=== PATIENT | female | born 1985 | race Hispanic/Latino ===

== ENCOUNTER 2018-06-25 17:44 | Emergency (ER) | payer OTHER ==
[2018-06-25 18:30] VITALS: BMI 26.2
--- NOTE | 2018-06-25 18:42 | OBHP ---
Datetime: 06/25/2018 18:34 IP Adm Impression: , intrauterine ; No Active Labor IP Admit Plan: Observation/Evaluation; Discharge home Admit Comment, IP Provider: Patient is a 2 para 1 estimated due date 08/12/2018 estimated ge stational age 33 weeks patient presents to labor and delivery complaining of [place] Regan contractio ns that have increased in intensity over the last 24-48 hours. Patient denies any vaginal bleeding an y leakage of fluid she reports good movement. care complicated by gestational diabetes diet controlled. Patient states she spelled with her PMD and was referred to labor and delivery for evaluation Past medical history none Past surgical history ablation for Kmusv-Dxsacnxmc-Pujth syndrome Medications vitamins Drug allergies allergic to amoxicillin and Ceclor cefprozil benzoyl peroxide shellfish Social history denies alcohol tobacco use Review of systems patient denies headache chest pain shortness of breath palpitations nausea vomit ing diarrhea heat or cold intolerance easy bruisability musculoskeletal or neurological complaints Vital signs stable afebrile Physical exam see notes Intrauterine at 33 weeks [place] Reg[place] contractions External monitor Urine analysis Plan of care discussed with Dr. Joy Observation Pelvic Type - PN: Adequate Extremities - PN: Normal Abdomen - PN: Normal Back - PN: Normal Breast - PN: Not Done Lungs - PN: Normal Heart - PN: Normal Thyroid - PN: Normal Neurologic - PN: Normal HEENT - PN: Normal General - PN: Normal FHR - Baseline A Provider: 145 Gestation - Est Wks by US: 33.0 Pool Provider: Negative EGA AdmitDate IP: 33.1 Vital Signs Provider: Reviewed IP Chief Complaint: Uterine contractions NICHD Variability Prov Fetus A: Moderate 6-25bpm NICHD Accel Fetus A IP Provider: 10X10 FHR Category Provider Fetus A: Category I NICHD Decel Fetus A IP Provider: None Dilatation, Provider: 0 Effacement, Provider: 0 Station, Provider: -2 Genitourinary Exam: Normal DTRs - PN: Not Done
[2018-06-25 19:31] LABS: SQUAMOUS EPITHIAL 1 /hpf (0-5); URINE BILIRUBIN NEGATIVE (NEGATIVE); URINE BLOOD NEGATIVE (NEGATIVE); URINE CLARITY SLIGHTY-CLOUDY (Clear); URINE COLOR STRAW (YELLOW); URINE GLUCOSE (UA) NEG (NEGATIVE); URINE LEUKOCYTE ESTERASE TRACE Leu/uL (Negative); URINE PROTEIN NEGATIVE (NEGATIVE); URINE UROBILINOGEN 0.2-1.0 mg/dL (0.2-1.0)
[2018-06-26 04:07] VITALS: BP 95/59; PULSE 89; RESP 18; TEMP 98.2; O2SAT 99
== END 2018-06-25 20:15 | disposition home or self-care (01) ==
LOC: H.EROB2 17:44
DX: O26.93 Pregnancy related conditions, unspecified, third trimester (principal); R10.2 Pelvic and perineal pain; O24.410 Gestational diabetes mellitus in pregnancy, diet controlled; Z3A.33 33 weeks gestation of pregnancy

== ENCOUNTER 2018-08-07 07:08 | Inpatient (IN) | payer OTHER ==
[2018-08-07 07:36] VITALS: BMI 26.6
[2018-08-07] MEDS ORDERED: Lactated Ringer's 1,000 ML IV ONE (08:29)
[2018-08-07] MEDS ORDERED: Oxytocin 30 UNIT 30 UNITS/500 ML BAG IV ONE (08:32)
[2018-08-07] MEDS ORDERED: OXYTOCIN/0.9 % NS 20 UNIT/1,000 ML BAG IV ONE (08:32)
--- NOTE | 2018-08-07 08:53 | OBADHP ---
Datetime: 08/07/2018 08:31 IP Chief Complaint Other: gestational DM; Macrosomia by sono; pylectasis by pre sono. IP Adm Impression Other: gest DM; Macrosomia by sono; Renal pylectasis Admit Comment, IP Provider: GBS neg. Admit to unit and augumentation of labor if needed. Discussed once again with pt about her condition and baby's condition, and sono findings of Macrosomia Discuss ed increased risks of shoulder dystocia and potential risks of injury to baby back, internal organs, brachial plexus, spine etc and injury to her canal. Pt was again reminded of gest DM that furt her complicates these risks and the fact that baby already has renal pylectasis and this may increase the risk of renal injury. Pt offered an elective C/S for the above reasons, but again she declines and refers had researched all of this in internet and wants to have vaginal delivery Risks, benefits and potential complications of vaginal delivery vs C/S was again discussed. Pt still insist she und erstands and will take her chances. This was witnessed by RN Ms Wang. Extremities - PN: Normal Abdomen - PN: Abnormal Back - PN: Normal Breast - PN: Not Done Lungs - PN: Normal Thyroid - PN: Normal Neurologic - PN: Not Done HEENT - PN: Normal General - PN: Normal Presentation-Admit: C FHR - Baseline A Provider: 140-15- Membranes, Provider: Intact Contraction Comments Provider: irreg Comments, ACOG Physical Exam: Abd soft gravid fundus at term, Ext no calf tenderness Gestation - Est Wks by US: 39.2 Pool Provider: Negative Vital Signs Provider: Reviewed IP Chief Complaint: Uterine contractions; Other NICHD Variability Prov Fetus A: Moderate 6-25bpm NICHD Decel Fetus A IP Provider: None Dilatation, Provider: 2cm Effacement, Provider: 20-30 Station, Provider: -2 Genitourinary Exam: Normal EGA AdmitDate IP: 39.2 IP Adm Impression: Term, intrauterine ; Active labor IP Admit Plan: Admit to unit; Initiate labor augmentation protocol Datetime: 06/25/2018 18:34 Pelvic Type - PN: Adequate Heart - PN: Normal NICHD Accel Fetus A IP Provider: 10X10 FHR Category Provider Fetus A: Category I DTRs - PN: Not Done
[2018-08-07 09:32] LABS: BASO % 0.3 % (0.0-2.0); EOS # 0.1 K/uL (0.0-0.7); EOS % 1.1 % (0.0-4.0); HEMOGLOBIN 11.9 g/dL (12.0-16.0); LYMPH # 1.5 K/uL (1.0-4.3); LYMPH % 14.9 % (20.0-40.0); MEAN CELL VOLUME 93.9 fl (81.0-99.0); MEAN CORPUSCULAR HEMOGLOBIN 31.9 pg (27.0-31.0); MEAN PLATELET VOLUME 10.1 fl (7.2-11.7); MONO # 0.6 K/uL (0.0-0.8); MONO % 6.2 % (0.0-10.0); NEUT # 7.5 K/uL (1.8-7.0); NEUT % 77.5 % (50.0-75.0); RBC 3.74 Mil/uL (3.80-5.20); RED CELL DISTRIBUTION WIDTH 13.7 % (11.5-14.5); WHITE BLOOD COUNT 9.7 K/uL (4.8-10.8)
[2018-08-07] MEDS: Lactated Ringer's 1,000 ML IV SCH ×4 (11:00→22:00)
[2018-08-07] MEDS ORDERED: Fentanyl/Bupivacaine HCl 250 ML EPI ONE (21:57)
--- NOTE | 2018-08-08 01:39 | OBPN ---
Datetime: 08/08/2018 01:34 IP Progress Impression: Normal progression of labor IP Progress Plan: Continue present management Pool Provider: Negative Membranes, Provider: Intact Contraction Comments Provider: 2 mins appart FHR - Baseline A Provider: 140's Gestation - Est Wks by US: [id number] Presentation-Admit: C IP Progress Note Comment: sugars had been wnl, had epidural and cuate well on her own with slo w progress discussed with pt wants to continue present management Vital Signs Provider: Reviewed NICHD Variability Prov Fetus A: Moderate 6-25bpm Dilatation, Provider: 5 Effacement, Provider: 75 Station, Provider: -3 NICHD Decel Fetus A IP Provider: None Datetime: 06/25/2018 18:34 NICHD Accel Fetus A IP Provider: 10X10 FHR Category Provider Fetus A: Category I
[2018-08-08] MEDS: Lactated Ringer's 1,000 ML IV SCH ×2 (06:03→16:33)
[2018-08-08] MEDS ORDERED: Oxytocin 30 UNIT 30 UNITS/500 ML BAG IV ONE ×2 (08:52→12:34)
--- NOTE | 2018-08-08 11:08 | OBPN ---
Datetime: 08/08/2018 10:59 IP Progress Impression Other: gest DM; macrosomia by sono and pylectasis by sono IP Progress Impression: Arrest of dilatation/descent IP Informed Consent Obtain: Section Delivery IP Progress Plan: Deliver- Section Membranes, Provider: Intact Contraction Comments Provider: 2min FHR - Baseline A Provider: 140 Gestation - Est Wks by US: 39.3 Presentation-Admit: C IP Progress Note Comment: Discussed again with pt about lack of progress despite good UC, and epidur al and baby not descending and discussed about all risks pt agreed to go ahead for abdominal deliver y Risks vs benefits were discussed and informed consent obtained will call anesthesia and peds Dilatation, Provider: 5cm Effacement, Provider: 75 Station, Provider: -3 NICHD Decel Fetus A IP Provider: None
[2018-08-08] MEDS ORDERED: Bupivacaine HCl 0.25% PF (10 ml) Inj ONE (11:34)
[2018-08-08] MEDS ORDERED: Bupivacaine HCl 0.5% PF (30 ml) Inj ONE (11:35)
[2018-08-08] MEDS: Clindamycin 600mg/50ml D5W 600 MG/50 ML VIAL IVPB SCH ×2 (11:50→17:16)
[2018-08-08] MEDS ORDERED: Morphine 1 mg/ml preservative-free Inj(Duramorph) ONE (12:31)
[2018-08-08] MEDS ORDERED: Propofol 10 mg/ml Inj (20 ML) ONE (12:45)
[2018-08-08] MEDS ORDERED: OXYTOCIN/0.9 % NS 20 UNIT/1,000 ML BAG IV ONE (14:02)
--- NOTE | 2018-08-08 14:14 | OBDS ---
DELIVERY PERSONNEL Delivery Doctor: Camryn Joy MD Scrub Nurse: Michelle Barrios System Operation Superintendent: Dao Ulloa RN Anesthesiologist: Christopher Fisher MD Resident: Tawana MATERNAL INFORMATION Delivery Anesthesia: Epidural Medications in Delivery: Pitocin Estimated Blood Loss (ml): 850 Placenta Cultured: No Maternal Complications: Other Other Maternal Complications: Gest DM; macrosomia by sono; pyliectasis Provider Comments: see dictated surgeons note LABOR SUMMARY EDC: 08/12/2018 00:00 LABOR INFORMATION Reason for Induction: Not Applicable Cervical Ripening Agents: cervidil removed Steroids Given: None Reason Steroids Not Administered: Not Applicable STAGES OF LABOR Stage 3 hrs: 0 Stage 3 min: 1 VAGINAL DELIVERY Episiotomy: None Laceration Extension: N/A Laceration Type: None Laceration Repair: Not Applicable Laceration Repair Note: n/a Sponge Count Correct: Yes Sharps Count Correct: Yes Count Comment: count correct x3 CSECTION DELIVERY Primary Indication: Primary C-S failure to progress Other Primary Indication: macrosomia by sono Secondary Indication: Failure of Descent Other Secondary Indication: pyliectasis by sono CSection Urgency: Non Elective CSection Incidence: Primary Labor: Labor Elective: Nonelective CSection Incision: Lower Uterine Transverse Uterine Closure: Double-layer closure BABY A INFORMATION Infant Delivery Date/Time: 08/08/2018 12:33 Method of Delivery: Born in Route : No : N/A Forceps: N/A Vacuum Extraction: Successful Shoulder Dystocia : No SHOULDER DYSTOCIA BABY A Infant Delivery Date/Time: 08/08/2018 12:33 PRESENTATION/POSITION BABY A Presentation: Cephalic Cephalic Presentation: Vertex Breech Presentation: N/A PLACENTA INFORMATION BABY A Placenta Delivery Time : 08/08/2018 12:34 Placenta Method of Delivery: Manual Removal Placenta Status: Delivered SCORES BABY A Heart Rate 1 min: >100 bpm Resp Effort 1 min: Good Cry Reflex Irritability 1 min: Cough or Sneeze or Pulls Away Muscle Tone 1 min: Active Motion Color 1 min: Body High [place], Extremities Blue Resuscitation Effort 1 min: Tactile Stimulation SCORE 1 MIN: 9 Heart Rate 5 min: >100 bpm Resp Effort 5 min: Good Cry Reflex Irritability 5 min: Cough or Sneeze or Pulls Away Muscle Tone 5 min: Active Motion Color 5 min: Body High [place], Extremities Blue Resuscitation Effort 5 min: N/A SCORE 5 MIN: 9 INFORMATION BABY A Gestational Age at Delivery: 39.0 Gestational Status: Term Outcome : Liveborn Condition : Stable Sex: Female IDENTIFICATION/MEDS BABY A ID Band Number: [id number] ID Band Location: Left Leg; Left Arm Vitamin K Given : Aquamephyton 1 mg IM Erythromycin Given: Given Both Eyes WEIGHT/LENGTH BABY A Infant Birthweight (gms): 4680 Weight (lb): 10 Infant Weight (oz): 5 CORD INFORMATION BABY A No. Cord Vessels: 3 Nuchal Cord : N/A Nuchal Cord Other: n/a True Knot: n/a Cord Blood Taken: Yes Banking/Donate Info: n/a Infant Suction: None; Mouth ASSESSMENT BABY A Infant Complications: None Physical Findings at Delivery: Within Normal Limits Respirations: Appears Normal Risk Management Internship/ALS Called : No Care By: Dr Su/Jensen Transferred To: Remains with Mother
[2018-08-08] MEDS ORDERED: Morphine 4 MG/ML VIAL IV PRN (17:34)
[2018-08-08] MEDS ORDERED: Naloxone 0.4 mg/ml Inj (Adult) IVP PRN (17:34)
[2018-08-08] MEDS ORDERED: DiphenhydrAMINE 50 mg/ml Inj IVP PRN (17:34)
[2018-08-09] MEDS: Clindamycin 600mg/50ml D5W 600 MG/50 ML VIAL IVPB SCH ×3 (00:42→08:29)
[2018-08-09] MEDS: Oxycodone/Acetaminophen 5/325 mg Tab PO PRN ×4 (00:48→18:16)
[2018-08-09] MEDS: Lactated Ringer's 1,000 ML IV SCH (00:49)
[2018-08-09 06:18] LABS: HEMOGLOBIN 11.5 g/dL (12.0-16.0); MEAN CELL VOLUME 93.8 fl (81.0-99.0); MEAN CORPUSCULAR HEMOGLOBIN 31.4 pg (27.0-31.0); MEAN CORPUSCULAR HGB CONC 33.5 g/dL (33.0-37.0); RBC 3.68 Mil/uL (3.80-5.20); RED CELL DISTRIBUTION WIDTH 13.7 % (11.5-14.5); WHITE BLOOD COUNT 12.2 K/uL (4.8-10.8)
[2018-08-09] MEDS: Multivitamin With Minerals Tab PO SCH (08:25)
--- NOTE | 2018-08-09 12:50 | OBPPN ---
Datetime: 08/09/2018 12:43 PP Pain Prov: Within normal limits PP Nausea Prov: Denies PP Flatus Prov: Yes PP BM Prov: No PP Breasts Prov: Normal PP Heart Prov: Normal PP Lungs Prov: Normal PP Abdomen/Uterus Prov: Normal PP Lochia Prov: Normal PP Vulva/Perineum Prov: Normal PP CVA Tenderness Prov: Normal PP Extremities Prov: Normal PP C/S Incision Prov: Normal PP Progress Prov: Normal PP Impression Prov: Normal progression PP Plan Prov: Continue present management PP Progress Note Prov: stable pod1 no complaints today continue present care oob with assistance reg ular diet dressing clean IP PP Procedures: None Vital Signs Provider PP: Reviewed; Within Normal Limits
[2018-08-10] MEDS: Oxycodone/Acetaminophen 5/325 mg Tab PO PRN ×4 (04:36→20:57)
[2018-08-10] MEDS: Multivitamin With Minerals Tab PO SCH (08:26)
--- NOTE | 2018-08-10 11:21 | OBPPN ---
Datetime: 08/10/2018 11:15 PP Pain Prov: Within normal limits PP Pain Prov comment: No SOB, chest or leg pains PP Nausea Prov: Denies PP Flatus Prov: Yes PP BM Prov: No PP Nausea Prov comment: denies C/F PP Breasts Prov: Normal PP Lungs Prov: Normal PP Abdomen/Uterus Prov: Abnormal PP Lochia Prov: Normal PP Vulva/Perineum Prov: Normal PP CVA Tenderness Prov: Normal PP Extremities Prov: Normal PP C/S Incision Prov: Normal PP Progress Prov: Normal PP Comments Phys Exam Prov: breast NE. MT. breast feeding; Abd soft ND, fundus firm at umb. dressing intact removed in toto and incission appears clean and d ry no active bleeding or sign of infection sutures in place; Ext no calf tenderness or edema. PP Impression Prov: Normal progression PP Plan Prov: Continue present management PP Progress Note Prov: OOb and ambulation, Dulcolax suppt this pm if no bm. continue sugar monitori ng IP PP Procedures: None Vital Signs Provider PP: Reviewed
[2018-08-11] MEDS: Oxycodone/Acetaminophen 5/325 mg Tab PO PRN (02:19)
--- NOTE | 2018-08-11 07:35 | OBPPN ---
Datetime: 08/11/2018 07:31 PP Pain Prov: Within normal limits PP Pain Prov comment: no SOB, chest or leg pains PP Nausea Prov: Denies PP Flatus Prov: Yes PP Breasts Prov: Normal PP Lungs Prov: Normal PP Abdomen/Uterus Prov: Abnormal PP Lochia Prov: Normal PP Vulva/Perineum Prov: Normal PP CVA Tenderness Prov: Normal PP Extremities Prov: Normal PP C/S Incision Prov: Normal PP Progress Prov: Normal PP Comments Phys Exam Prov: breast NE, NT; abd soft ND, fundus firm below the umb. Incision clean an d dry sutures in place, no sign of infection. Ext no edema or calf tenderness PP Impression Prov: Normal progression PP Plan Prov: Discharge PP Progress Note Prov: D/C home with instruction and continue sugar monitoring at home. Appt to off ice 1 wk IP PP Procedures: None Vital Signs Provider PP: Reviewed
--- NOTE | 2018-08-11 07:37 | OBDCSUM ---
Datetime: 08/11/2018 07:34 Discharged to, Provider: Home Follow up at, Provider: Dr Joy Disch Instr Activity: Bedrest; May be up to bathroom; May be up for meals; May Shower Disch Instr Diet: Regular Discharge Instructions, Provider: Routine instructions given Discharge Diagnosis, Provider: Term Delivered Discharge Time: 08/11/2018 07:34 Follow up in weeks, Provider: 1 wk Disch Referrals: None Contraception discussed, Prov: Yes Disch Activity Restrictions: No exercising; No lifting; No driving; Minimize walking; Minimize stair -climbing; No sexual activity; Nothing in vagina - [place], tampons, douche Discharge Comment, Provider: Continue PNC vit and iron and sugar monitoring Instructions given Rx fo r Percocet given Discharge Diagnosis Prov Other: gest DM; Macrosomia; meconium stained AF Contraception after Delivery: Undecided
[2018-08-11] MEDS: Multivitamin With Minerals Tab PO SCH (08:37)
[2018-08-11 18:11] VITALS: BP 110/76; PULSE 73; RESP 20; TEMP 97.9; O2SAT 97
== END 2018-08-11 14:06 | disposition home or self-care (01) | DRG 788 ==
LOC: H.EROB2 07:08 → H.L&D 08:29 → H.EROB 08-08 12:24 → H.OB/GYN 08-08 16:18
PROVIDERS: ADMIT Specialist; ATTEND Specialist
PROC: 4A1HXCZ Monitoring of Products of Conception, Cardiac Rate, External Approach (ICD-10-PCS; 2018-08-07)
PROC: 10D00Z1 Extraction of Products of Conception, Low, Open Approach (ICD-10-PCS; principal; 2018-08-08)
DX: O62.0 Primary inadequate contractions (principal); O24.429 Gestational diabetes mellitus in childbirth, unspecified control; O32.4XX0 Maternal care for high head at term, not applicable or unspecified; O36.63X0 Maternal care for excessive fetal growth, third trimester, not applicable or unspecified; Z37.0 Single live birth; O77.0 Labor and delivery complicated by meconium in amniotic fluid; Z3A.39 39 weeks gestation of pregnancy